=== PATIENT | male | born 1985 | race Caucasian/White ===

== ENCOUNTER 2017-06-14 00:58 | Emergency (ER) | payer MEDICAID ==
[~2017-06-14] VITALS: Ht 167.6 cm; Wt 81.6 kg
[2017-06-14 01:11] VITALS: BP 150/90
[2017-06-14 01:22] VITALS: BP 150/90
--- NOTE | 2017-06-14 01:22 | NUR ---
TO LOBBY, A/W BED, AMB, STABLE, ERMD NOTED
--- NOTE | 2017-06-14 02:00 | NUR ---
PATIENT AMBULATED TO ER BED 10
--- NOTE | 2017-06-14 02:12 | NUR ---
31Y/M BIBA TO ED WITH C/O GEN WEAKNESS . PT STATES HUNGRY AND WEAKNESS, HX. DM. DENIES N/V/D; SKIN IS PINK/WARM/DRY; AAOX4 WITH EVEN AND STEADY GAIT; LUNGS CLEAR BL; HR EVEN AND REGULAR; PT DENIES ANY FEVER, CP, SOB, OR COUGH AT THIS TIME; PATIENT STATES PAIN OF 0/10 AT THIS TIME; VSS; PATIENT POSITIONED FOR COMFORT; HOB ELEVATED; BEDRAILS UP X2; BED DOWN. ER MD MADE AWARE OF PT STATUS.
--- NOTE | 2017-06-14 02:28 | NUR ---
PT MOVED TO OVERFLOW
--- NOTE | 2017-06-14 03:18 | NUR ---
PATIENT LEFT WITHOUT BEING SEEN BY DR. Matos. NO FURTHER CARE PROVIDED FOR PATIENT.
== END 2017-06-14 03:18 | disposition left against medical advice (07) ==
LOC: MED 00:58
DX: R53.1 Weakness (principal); Z53.21 Procedure and treatment not carried out due to patient leaving prior to being seen by health care provider

== ENCOUNTER 2017-08-26 14:11 | Emergency (ER) | payer OTHER ==
[~2017-08-26] VITALS: Ht 162.6 cm; Wt 81.2 kg
[2017-08-26 14:34] VITALS: BP 121/68
--- NOTE | 2017-08-26 14:34 | NUR ---
PT PLACED IN BED 6 BY EMS.
--- NOTE | 2017-08-26 15:09 | NUR ---
PATIENT ELOPED FROM ER AT THIS TIME.
== END 2017-08-26 15:09 | disposition left against medical advice (07) ==
LOC: MED 14:11
DX: M54.5 Low back pain (principal); Z53.21 Procedure and treatment not carried out due to patient leaving prior to being seen by health care provider

== ENCOUNTER 2019-06-26 13:22 | Emergency (ER) | payer OTHER ==
[~2019-06-26] VITALS: Ht 175.3 cm; Wt 82.3 kg
--- NOTE | 2019-06-26 13:22 | NUR ---
LASHELL DURAN ALS TO ER BED 06
[2019-06-26 13:28] VITALS: BP 112/72
--- NOTE | 2019-06-26 13:35 | NUR ---
33M PT BIBA S/P TONIC CLONIC SEIZURE LASTING APPROX 1 MINUTE. PT IS A/O X 1 TO NAME AND CONFUSED. MEDHX: DM, SEIZURES RX: UNKNOWN
--- NOTE | 2019-06-26 13:38 | NUR ---
DR SAMS AT BEDSIDE EVALUATING PATIENT
--- NOTE | 2019-06-26 14:01 | NUR ---
Patient discharged with v/s stable. PT IS S/P SEIZURE. HE IS NOW AAOX4. NO LOC DURING HOSPITAL STAY. PT GOING HOME VIA [facility]. Written and verbal after care instructions given and explained. Patient verbalized understanding. Ambulatory with steady gait. All questions addressed prior to discharge. Advised to follow up with PMD.
[2019-06-26 14:02] VITALS: BP 115/80
== END 2019-06-26 14:01 | disposition home or self-care (01) ==
LOC: MED 13:22
DX: R56.9 Unspecified convulsions (principal); E11.9 Type 2 diabetes mellitus without complications; F17.200 Nicotine dependence, unspecified, uncomplicated
CPT/HCPCS: 99281